=== PATIENT | female | born 1945 | race Caucasian/White ===

== ENCOUNTER → 2017-04-07 | Outpatient (CLI) | payer OTHER | LOC: HEART 5 07:26 | DX: R00.2 Palpitations (principal); R06.02 Shortness of breath; R53.1 Weakness; R06.00 Dyspnea, unspecified | CPT/HCPCS: 93306 ==

== ENCOUNTER → 2017-04-19 | Outpatient (CLI) | payer OTHER | LOC: HEART 5 07:06 | DX: R07.9 Chest pain, unspecified (principal); R06.02 Shortness of breath; R53.1 Weakness | CPT/HCPCS: 78452; A9502; J2785 ==

== ENCOUNTER → 2017-08-05 | Outpatient (CLI) | payer OTHER | LOC: RAD 14:08 | DX: S96.911A Strain of unspecified muscle and tendon at ankle and foot level, right foot, initial encounter (principal); M19.071 Primary osteoarthritis, right ankle and foot | CPT/HCPCS: 73630 ==

== ENCOUNTER → 2020-12-11 | Outpatient (CLI) | payer OTHER ==
[~2020-12-11] MED LIST: LORTAB 5-325 M1 EACH PO
== END ==
LOC: MAMO 09:00
DX: Z12.31 Encounter for screening mammogram for malignant neoplasm of breast (principal)
CPT/HCPCS: 77063; 77067

== ENCOUNTER → 2021-05-11 | Outpatient (CLI) | payer OTHER | LOC: EMI 10:53 | DX: G44.059 Short lasting unilateral neuralgiform headache with conjunctival injection and tearing (SUNCT), not intractable (principal) | CPT/HCPCS: 70551 ==

== ENCOUNTER → 2022-05-12 | Day surgery (SDC) | payer OTHER ==
[~2022-05-12] MED LIST changes: +24 HOUR ALLERG9.9 ML; +ATORVASTATIN CA80 MG PO; +CETIRIZINE HCL10 MG PO; +CONSTULOSE10 GM/15 M PO; +DOCUSATE SODIU250 MG PO; +GLUCOPHAGE 500500 MG GT; +HYDROCHLOROTH12.5 MG PO; +LISINOPRIL40 MG PO; +LOW DOSE ASPIRI81 MG PO; +METHOCARBAMOL500 MG PO; +METOPROLOL SUC100 MG PO; +MONTELUKAST SOD10 MG PO; +NEURONTIN 100100 MG PO; +PROAIR HFA8.5 GM INH; +PROTONIX 40 MG40 M1 PO; +ZYRTEC10 M3 PO
== END | disposition home or self-care (01) ==
LOC: OR 07:18
DX: Z12.11 Encounter for screening for malignant neoplasm of colon (principal); D12.2 Benign neoplasm of ascending colon; D12.0 Benign neoplasm of cecum; D12.5 Benign neoplasm of sigmoid colon; K57.30 Diverticulosis of large intestine without perforation or abscess without bleeding; K64.1 Second degree hemorrhoids; K59.09 Other constipation; K21.9 Gastro-esophageal reflux disease without esophagitis; I11.0 Hypertensive heart disease with heart failure; I50.9 Heart failure, unspecified; E78.00 Pure hypercholesterolemia, unspecified; E11.9 Type 2 diabetes mellitus without complications; E66.01 Morbid (severe) obesity due to excess calories; Z68.41 Body mass index [BMI] 40.0-44.9, adult; Z86.010 Personal history of colon polyps; Z88.2 Allergy status to sulfonamides; Z79.82 Long term (current) use of aspirin; Z79.899 Other long term (current) drug therapy
CPT/HCPCS: 82962; J2704; J7040

== ENCOUNTER → 2022-06-30 | Outpatient (CLI) | payer OTHER | LOC: HEART 5 10:58 | DX: R00.2 Palpitations (principal); I11.0 Hypertensive heart disease with heart failure; I50.9 Heart failure, unspecified; R06.02 Shortness of breath | CPT/HCPCS: 93306 ==

== ENCOUNTER → 2022-07-27 | Outpatient (CLI) | payer OTHER | LOC: HEART 5 13:07 | DX: I47.2 Ventricular tachycardia (principal) ==

== ENCOUNTER 2022-08-11 16:52 | Emergency (ER) | payer OTHER ==
[2022-08-11 17:45] LABS: HEMOGLOBIN 14.6 gm/dl (12.3-15.3); RED BLOOD COUNT 4.8 M/UL (4.00-5.10)
[2022-08-11] MEDS ORDERED: VIBRAMYCIN100 MG PO (19:42)
== END 2022-08-11 20:05 | disposition home or self-care (01) ==
LOC: ER1 16:52
PROVIDERS: Physician Assistant Medical
DX: L03.114 Cellulitis of left upper limb (principal); I11.9 Hypertensive heart disease without heart failure; E11.9 Type 2 diabetes mellitus without complications; E78.5 Hyperlipidemia, unspecified; Z88.2 Allergy status to sulfonamides
CPT/HCPCS: 73080; 80053; 85025; 85652; 86140; 99283